=== PATIENT | female | born 1945 | race Caucasian/White ===

== ENCOUNTER 2023-11-02 14:28 | Outpatient (CLI) | payer MEDICARE | END 2023-11-02 14:29 | disposition home or self-care (01) | LOC: SCSRAD 14:28 | PROVIDERS: ATTEND Family Medicine | DX: M25.551 Pain in right hip (principal); M16.11 Unilateral primary osteoarthritis, right hip; M47.816 Spondylosis without myelopathy or radiculopathy, lumbar region | CPT/HCPCS: 72100 ==